=== PATIENT | female | born 1940 | race Caucasian/White ===

== ENCOUNTER 2017-04-19 21:58 | Emergency (ER) | payer MEDICARE, BC ==
[2017-04-19] MEDS ORDERED: MORPHINE SULFATE 2 MG/ML DISP.SYRIN IV ONE (23:21)
--- NOTE | 2017-04-19 23:23 | ERNOTE ---
Lower Extremity HPI - General Time Seen by Provider: 04/19/17 22:18 Source: patient - Immun/Allergies/Home Medications Immunizations: IMMUNIZATION HX Immunizations Up to Date Yes Immunizations Comment shingles. History of Influenza Vaccine Yes Hx Pneumococcal Vaccination Yes Allergies/Adverse Reactions: Allergies Allergy/AdvReac Type Severity Reaction Status Date / Time codeine Allergy Verified 04/19/17 22:14 Sulfa (Sulfonamide Allergy Verified 04/19/17 22:14 Antibiotics) Home Medications: HOME MEDICATIONS Aspirin 81 mg PO DAILY 12/05/15 [Last Taken Unknown] Atorvastatin Calcium 20 mg PO DAILY 12/05/15 [Last Taken Unknown] Cholecalciferol (Vitamin D3) [Vitamin D3] 1,000 unit PO DAILY 12/05/15 [Last Taken Unknown] Esomeprazole Magnesium [Nexium] 40 mg PO DAILY 12/05/15 [Last Taken Unknown] Hydrochlorothiazide [Hydrodiuril] 25 mg PO DAILY 12/05/15 [Last Taken Unknown] Meloxicam [Mobic] 15 mg PO DAILY 12/05/15 [Last Taken Unknown] metFORMIN HCL [Glucophage Xr] 500 mg PO BID 12/05/15 [Last Taken Unknown] rOPINIRole HCL [Requip] 0.5 mg PO DAILY 12/05/15 [Last Taken Unknown] Ibuprofen [Motrin] 600 mg PO TID PRN #30 tab 04/20/17 [Last Taken Unknown] - History of Present Illness Narrative: pt here for feeling a lissette on her right calf for 24 hours. She also states that her left days ago she had a sensation of shortness of breath and right upper chest pain. She is here predominantly because her leg is hurting in her calf is hurting she feels a knot and she is worried that it is a blood clot. - Patient's Past Medical History Patient History - Medical: Diabetes Type 2, Depression, Other Patient History - Cardiac/Respiratory: Hypertension, Hyperlipidemia Patient History - Cancer: No Hx of Cancer Patient History - Surgical Procedures: Cataracts, Hysterectomy, Total Hip Replacement, Total Knee Replacement, Other Patient History - Other: None LMP (females 10-50): Menopausal - Social History Living Situations: home Abuse History: No History of abuse Psych History: No pertinent hx Alcohol Use: occasionally Drug Use: none - Immunizations Immunizations Up to Date: Yes Hx Pneumococcal Vaccination: Yes History of Influenza Vaccine: Yes Physical Exam - Physical Exam General Appearance: Present: wd/wn, alert, no apparent distress Head Exam: Present: normal inspection Ears, Nose, Throat: Present: normal ENT inspection Respiratory: Present: no respiratory distress, normal breath sounds, no accessory muscle use, chest nontender, lungs clear Cardiovascular/Chest: Present: regular rate, rhythm, no murmur, normal peripheral pulses Extremity Exam: Present: other - there is an area of tenderness in the right calf region it feels as if a tight cord exists in the right calf. There is no redness or ecchymosis noted however the patient is extremely sensitive and tender upon palpation of this cord in her right calf. Neurological Exam: Present: alert, oriented, normal mood/affect, no motor/ sensory deficits ED Progress - Results and Orders Patient's Lab Results:: I have reviewed the patient's lab results. - Vital Signs Vital Signs: Vital Signs 04/19/17 04/19/17 04/19/17 22:09 22:51 23:20 Temperature 36.2 C L Pulse Rate 91 82 89 Respiratory 16 16 17 Rate Blood Pressure 154/83 149/73 140/72 O2 Sat by Pulse 96 97 98 Oximetry - CT/Ultrasound CT/Ultrasound Narrative: CT scan and ultrasound were read by a radiologist as negative for PE and DVT respectively. - Progress/Reassessment Chief Complaint: Lower Extremity Pain/ Injury Plan - Plan Plan: Patient has right-sided calf pain, all tests indicating this to be a DVT has been negative. At this time the patient will be sent home with leg pain. Departure Clinical Impression: Right calf pain - Departure Disposition: Home self-care Condition: Good Instructions: Muscle Cramps and Spasms, [id number] Referrals: Hannah Desir APN [Primary Care Provider] - Prescriptions: Ibuprofen [Motrin] 600 mg PO TID PRN #30 tab PRN Reason: Pain
[2017-04-19 23:26] LABS: Hematocrit 41.2 % (37.0-47.0); Hemoglobin 13.5 gm/dL (12.5-16.0); Mean Cell Volume 83.9 fl (78-100); Mean Corpuscular Hemoglobin 27.5 pg (27-31); Mean Corpuscular Hgb Conc 32.8 g/dl (32-36); Mean Platelet Volume 11.8 fl (6.0-9.5); Neutrophil # 5.8 K/mm3 (1.3-6.0); Neutrophil % 64.3 % (42-75.0); Platelet Count 255 K/mm3 (150-450); Red Blood Count 4.91 M/mm3 (4.2-5.4)
[2017-04-19] MEDS ORDERED: MORPHINE SULFATE 2 MG/ML DISP.SYRIN ONE (23:30)
[2017-04-19 23:31] LABS: Anion Gap 12.8 mmol/L (6.8-13.8); BUN/Creatinine Ratio 18.9 (9.0-21.6); Calcium * 9.5 mg/dL (7.9-10.9); Carbon Dioxide 31.3 mmol/L (24-32.6); Estimated Creat Clear 39.7; Potassium 4.1 mmol/L (3.4-4.6)
[2017-04-20 01:13] VITALS: BP 133/77
== END 2017-04-20 01:07 | disposition home or self-care (01) ==
LOC: ER 21:58
DX: M79.661 Pain in right lower leg (principal)

== ENCOUNTER 2017-05-29 15:21 | Emergency (ER) | payer MEDICARE, BC ==
[2017-05-29 15:34] VITALS: BP 123/53
[2017-05-29] MEDS ORDERED: ONDANSETRON HCL/PF 2 MG/ML VIAL ONE (15:42)
[2017-05-29] MEDS ORDERED: DIPHTH,PERTUSS(ACELL),TET VAC 0.5 ML VIAL IM ONE (15:43)
[2017-05-29] MEDS: DIPHTH,PERTUSS(ACELL),TET VAC 0.5 ML VIAL IM ONE (15:48)
[2017-05-29] MEDS: ONDANSETRON HCL/PF 2 MG/ML VIAL IV ONE (15:49)
[2017-05-29 15:58] LABS: Hematocrit 38.4 % (37.0-47.0); Hemoglobin 12.7 gm/dL (12.5-16.0); Mean Cell Volume 83.1 fl (78-100); Mean Corpuscular Hemoglobin 27.5 pg (27-31); Mean Corpuscular Hgb Conc 33.1 g/dl (32-36); Mean Platelet Volume 11.4 fl (6.0-9.5); Neutrophil # 5.5 K/mm3 (1.3-6.0); Neutrophil % 67.5 % (42-75.0); Platelet Count 242 K/mm3 (150-450); Red Blood Count 4.62 M/mm3 (4.2-5.4); White Blood Count 8.1 K/mm3 (4.0-10.5)
--- NOTE | 2017-05-29 16:08 | ERNOTE ---
Trauma/Assault HPI - Narrative Date of Service: 05/29/17 - General Stated Complaint: FALL Time Seen by Provider: 05/29/17 15:25 Source: patient, RN notes reviewed Exam Limitations: clinical condition - Immun/Allergies/Home Medications Immunizations: IMMUNIZATION HX Immunizations Up to Date Yes History of Influenza Vaccine Yes Hx Pneumococcal Vaccination Yes Allergies/Adverse Reactions: Allergies codeine Allergy (Verified 05/29/17 15:34) Sulfa (Sulfonamide Antibiotics) Allergy (Verified 05/29/17 15:34) Home Medications: HOME MEDICATIONS Aspirin 81 mg PO DAILY 12/05/15 [Last Taken Unknown] Atorvastatin Calcium 20 mg PO DAILY 12/05/15 [Last Taken Unknown] Cholecalciferol (Vitamin D3) [Vitamin D3] 1,000 unit PO DAILY 12/05/15 [Last Taken Unknown] Esomeprazole Magnesium [Nexium] 40 mg PO DAILY 12/05/15 [Last Taken Unknown] Hydrochlorothiazide [Hydrodiuril] 25 mg PO DAILY 12/05/15 [Last Taken Unknown] Meloxicam [Mobic] 15 mg PO DAILY 12/05/15 [Last Taken Unknown] metFORMIN HCL [Glucophage Xr] 500 mg PO BID 12/05/15 [Last Taken Unknown] rOPINIRole HCL [Requip] 0.5 mg PO DAILY 12/05/15 [Last Taken Unknown] Ibuprofen [Motrin] 600 mg PO TID PRN #30 tab 04/20/17 [Last Taken Unknown] Melatonin 1 mg PO HS 05/29/17 [Last Taken Unknown] - History of Present Illness Date (Duration): 05/29/17 Narrative: 76 y/o female brought to the ED by ambulance for injuries due to a fall. She was leaving the [employer] and reports tripping and falling in the parking lot. She is unsure if she lost consciousness. She struck her left cheek on the ground. She also reports pain in her left knee. She reports that she has fallen several times recently, causing her to have to relocate here to be closer to her children. She was feeling fine prior to the fall. She currently complains of nausea, but she believes this is because she is anxious. Location Occurred: Reports: other Pain Location: Reports: face, neck - left lateral, lower extremity - Left knee Method of Injury: Reports: fall Loss of Consciousness: Reports: remembers the event, remembers coming to hospital, unsure Associated Symptoms - Trauma: Reports: trouble walking, neck pain, nausea. Denies: headache, confusion, dizziness, lightheadedness, seizures, slurred speech, vision changes, chest pain, shortness of breath, abdominal pain, vomiting Review of Systems - Review of Systems Constitutional: Absent: recent illness, fever EYE: Absent: eye pain, vision changes ENT: Absent: ear discharge, nasal drainage Respiratory: Absent: shortness of breath, wheezing Cardiology: Absent: chest pain, palpitations, syncope Gastrointestinal/Abdominal: Present: nausea. Absent: vomiting, abdominal pain Genitourinary: Present: no symptoms reported Musculoskeletal: Present: muscle pain, neck pain, joint pain. Absent: back pain , joint swelling Skin: Absent: rash, lesions, change in color Neurological: Absent: dizziness/light-headedness, weakness, numbness, tingling Endocrine: Present: no symptoms reported Hematologic/Lymphatic: Absent: easy bruising, easy bleeding Psych: Present: no symptoms reported - Patient's Past Medical History Patient History - Medical: Cataracts, Diabetes Type 2, Depression - Bipolar, Fibromyalgia, UTI'S, Other Patient History - Cardiac/Respiratory: CHF, Hypertension, Hyperlipidemia, TIA, Sleep Apnea Patient History - Cancer: No Hx of Cancer Patient History - Surgical Procedures: Appendectomy, Cataracts, Colonoscopy, Hysterectomy, Total Hip Replacement, Total Knee Replacement Patient History - Other: None LMP (females 10-50): Menopausal - Social History Living Situations: other Abuse History: No History of abuse Psych History: No pertinent hx Smoking Status: Former smoker Have you smoked in the past 12 months: No Do you dip or chew tobacco: No Alcohol Use: occasionally Drug Use: none - Immunizations Immunizations Up to Date: Yes Hx Pneumococcal Vaccination: Yes History of Influenza Vaccine: Yes Physical Exam - Physical Exam General Appearance: Present: wd/wn, mild distress, anxious Head Exam: Present: tenderness - Right maxillary region. Absent: Garzon's Sign , contusions, ecchymosis, lacerations, raccoon eyes, swelling Eye Exam: Normal inspection: bilateral, PERRL: bilateral, EOMI: bilateral Ears, Nose, Throat: Present: normal ENT inspection Neck: Present: supple, full range of motion, tender lateral - left. Absent: tender posterior midline Respiratory: Present: no respiratory distress, normal breath sounds, no accessory muscle use, lungs clear Cardiovascular/Chest: Present: regular rate, rhythm, no murmur, normal peripheral pulses Gastrointestinal/Abdominal: Present: nontender, nondistended, soft Back Exam: Present: normal inspection, no CVA tenderness, no vertebral tenderness Extremity Exam: Present: no edema, pelvis stable, other - contusion/abrasion left anterior knee Neurological Exam: Present: alert, oriented, normal mood/affect, no motor/ sensory deficits Skin Exam: Present: normal color, warm/dry ED Progress - Results and Orders Patient's Lab Results:: I have reviewed the patient's lab results. - Vital Signs Patient's Vital Signs:: I have reviewed the patient's vital signs. Vital Signs: Vital Signs 05/29/17 15:27 Temperature 36.2 C L Pulse Rate 63 Respiratory 20 Rate Blood Pressure 123/53 O2 Sat by Pulse 96 Oximetry - X-Ray X-Ray #1 X-Ray: knee Interpretation: Reviewed by me X-ray Comments: Left - no acute osseous findings - CT/Ultrasound CT/Ultrasound Narrative: Non-contrast head CT shows no acute intracranial findings - Progress/Reassessment Chief Complaint: Fall Progress:: Improved Departure Clinical Impression: Fall Qualifiers: Encounter type: initial encounter Qualified Code(s): W19.XXXA - Unspecified fall, initial encounter Contusion of knee, left Qualifiers: Encounter type: initial encounter Qualified Code(s): S80.02XA - Contusion of left knee, initial encounter - Departure Disposition: Home self-care Condition: Good Instructions: Contusion, [id number], Fall Prevention in the Home Additional Instructions: Tylenol for pain Ice to sore areas as needed Continue your routine medications Follow up as needed
[2017-05-29 16:20] LABS: ALT 17 U/L (19-67); AST 26 U/L (0-48); Albumin * 3.5 gm/dl (3.4-5.0); Alkaline Phosphatase * 92 U/L (50-170); Anion Gap 14.7 mmol/L (6.8-13.8); BUN/Creatinine Ratio 22.2 (9.0-21.6); Bilirubin, Total 1.4 mg/dL (0.0-1.1); Blood Urea Nitrogen 22 mg/dL (3-23); Ca. Corrected For Albumin 9.6 mg/dL (8.4-10.2); Calcium * 9.5 mg/dL (7.9-10.9); Chloride 101 mmol/L (97-106); Glucose * 138 mg/dL (70-110); Potassium 3.7 mmol/L (3.4-4.6); Sodium 140 mmol/L (132-142); Total Protein 7.4 gm/dL (6.2-8.2)
[2017-05-29 16:39] LABS: Urine Bilirubin Negative (NEGATIVE); Urine Blood Negative /ul (NEGATIVE); Urine Ketone 5 mg/dL (NEGATIVE); Urine Nitrite Negative (NEGATIVE); Urine Protein Negative (NEGATIVE); Urine Specific Gravity >=1.030 SP.GR. (1.005-1.010); Urine Urobilinogen Normal (NORMAL); Urine pH 5.5 pH (5.0-7.0)
[2017-05-29 16:51] LABS: Cocaine Ur Negative (NEGATIVE); Urine Barbiturate Negative (NEGATIVE); Urine Benzodiazepines Negative (NEGATIVE); Urine PCP Negative (NEGATIVE); Urine THC Negative (NEGATIVE)
[2017-05-29 16:52] LABS: Urine Appearance Slightly Cloudy; Urine Bacteria 2+; Urine Color Dark Yellow; Urine RBC None Seen /hpf (0-5); Urine WBC 0-5 /hpf (0-5)
[2017-05-29] MEDS ORDERED: KETOROLAC TROMETHAMINE 30 MG/ML VIAL ONE (16:55)
[2017-05-29] MEDS: KETOROLAC TROMETHAMINE 30 MG/ML VIAL IV ONE (16:56)
[2017-05-29 17:03] LABS: Urine Opiates Negative (NEGATIVE)
== END 2017-05-29 17:00 | disposition home or self-care (01) ==
LOC: ER 15:21
DX: S80.02XA Contusion of left knee, initial encounter (principal); S80.212A Abrasion, left knee, initial encounter; E11.9 Type 2 diabetes mellitus without complications; Z87.440 Personal history of urinary (tract) infections; I10 Essential (primary) hypertension; E78.5 Hyperlipidemia, unspecified; I50.9 Heart failure, unspecified; Z87.891 Personal history of nicotine dependence; W01.0XXA Fall on same level from slipping, tripping and stumbling without subsequent striking against object, initial encounter; Y93.01 Activity, walking, marching and hiking; Y92.481 Parking lot as the place of occurrence of the external cause; Z23 Encounter for immunization; Z79.899 Other long term (current) drug therapy
CPT/HCPCS: 36415; 70450; 73562; 80053; 80307; 81001; 85025; 90471; 90715; 96374; 96375; 99284; G0481; J2405

== ENCOUNTER 2017-09-05 04:27 | Emergency (ER) | payer MEDICARE, BC ==
[2017-09-05] MEDS ORDERED: ASPIRIN 81 MG TAB.CHEW PO ONE (04:36)
[2017-09-05] MEDS: NITROGLYCERIN 0.4 MG/TAB BTL SL PRN ×3 (04:36→04:51)
[2017-09-05] MEDS ORDERED: ASPIRIN 81 MG TAB.CHEW ONE (04:39)
[2017-09-05 04:54] LABS: Hematocrit 38.1 % (37.0-47.0); Hemoglobin 12.4 gm/dL (12.5-16.0); Mean Cell Volume 84.9 fl (78-100); Mean Corpuscular Hemoglobin 27.6 pg (27-31); Mean Corpuscular Hgb Conc 32.5 g/dl (32-36); Mean Platelet Volume 11.4 fl (6.0-9.5); Neutrophil # 5.7 K/mm3 (1.3-6.0); Neutrophil % 67.3 % (42-75.0); Platelet Count 174 K/mm3 (150-450); Red Blood Count 4.49 M/mm3 (4.2-5.4); Red Cell Distribution Width 14.2 % (11.5-14.0); White Blood Count 8.5 K/mm3 (4.0-10.5)
[2017-09-05 05:07] LABS: Prothrombin Time (Patient) 10.1 Seconds (9.0-11.0)
[2017-09-05 05:09] LABS: INR 1.01 INR (0.90-1.10); Partial Thrombolplastin Time 25.4 Seconds (24-32)
[2017-09-05] MEDS ORDERED: MORPHINE SULFATE 4 MG/ML SYRG ONE ×2 (05:13→05:43)
[2017-09-05] MEDS ORDERED: MORPHINE SULFATE 4 MG/ML SYRG IV ONE ×2 (05:14→05:37)
[2017-09-05 05:16] LABS: ALT 16 U/L (19-67); AST 26 U/L (0-48); Albumin * 3.4 gm/dl (3.4-5.0); Alkaline Phosphatase * 98 U/L (50-170); BUN/Creatinine Ratio 22.5 (9.0-21.6); Bilirubin, Total 1.3 mg/dL (0.0-1.1); Blood Urea Nitrogen 20 mg/dL (3-23); Ca. Corrected For Albumin 9.6 mg/dL (8.4-10.2); Calcium * 9.4 mg/dL (7.9-10.9); Carbon Dioxide 29.7 mmol/L (24-32.6); Chloride 102 mmol/L (97-106); Glucose * 149 mg/dL (70-110); Potassium 3.7 mmol/L (3.4-4.6); Sodium 141 mmol/L (132-142); Total Protein 7.2 gm/dL (6.2-8.2); Troponin I Less than 0.017 ng/ml (0.00-0.10)
--- NOTE | 2017-09-05 07:08 | ERNOTE ---
<Aleksandr Devi - Last Filed: 09/05/17 07:01> Chest Pain/Cardiac HPI Date of Service: 09/05/17 Chief Complaint: Chest Pain Time Seen by Provider: 09/05/17 04:36 Source: patient Exam Limitations: no limitations Immunizations: IMMUNIZATION HX Immunizations Up to Date Yes History of Influenza Vaccine Yes Hx Pneumococcal Vaccination Yes Allergies/Adverse Reactions: Allergies codeine Allergy (Verified 05/29/17 15:34) Sulfa (Sulfonamide Antibiotics) Allergy (Verified 05/29/17 15:34) Home Medications: HOME MEDICATIONS Aspirin 81 mg PO DAILY 12/05/15 [Last Taken Unknown] Atorvastatin Calcium 20 mg PO DAILY 12/05/15 [Last Taken Unknown] Cholecalciferol (Vitamin D3) [Vitamin D3] 1,000 unit PO DAILY 12/05/15 [Last Taken Unknown] Esomeprazole Magnesium [Nexium] 40 mg PO DAILY 12/05/15 [Last Taken Unknown] Hydrochlorothiazide [Hydrodiuril] 25 mg PO DAILY 12/05/15 [Last Taken Unknown] Meloxicam [Mobic] 15 mg PO DAILY 12/05/15 [Last Taken Unknown] metFORMIN HCL [Glucophage Xr] 500 mg PO BID 12/05/15 [Last Taken Unknown] rOPINIRole HCL [Requip] 0.5 mg PO DAILY 12/05/15 [Last Taken Unknown] Ibuprofen [Motrin] 600 mg PO TID PRN #30 tab 04/20/17 [Last Taken Unknown] Melatonin 1 mg PO HS 05/29/17 [Last Taken Unknown] Narrative: patient had onset of left arm neck and slight chest pain, onset at 400 am this am Timing: constant Severity/Quality: pressure, stabbing Location: central, left chest Chest Pain Radiation: jaw, arms Activities at Onset: rest Modifying Factors - Improves: Present: nothing Nitro Today/Relief: no nitro taken today Aspirin Treatment Today: no aspirin today Associated Symptoms: Present: denies symptoms Prior Chest Pain/Cardiac Workup: Reports: no prior cardiac workup Prior Treatment: Reports: other - no prior treatment Review of Systems - Narrative Narrative: onset of neck, arm pain this am with slight arm pressure - Review of Systems Constitutional: Present: See HPI EYE: Present: no symptoms reported Respiratory: Present: no symptoms reported Cardiology: Present: no symptoms reported Gastrointestinal/Abdominal: Present: no symptoms reported Genitourinary: Present: no symptoms reported Musculoskeletal: Present: neck pain Skin: Present: no symptoms reported Neurological: Present: no symptoms reported Endocrine: Present: no symptoms reported Hematologic/Lymphatic: Present: no symptoms reported - Narrative Narrative: paet hx unremarkable - Patient's Past Medical History Patient History - Medical: Cataracts, Diabetes Type 2, Depression, Fibromyalgia , UTI'S, Other Patient History - Cardiac/Respiratory: CHF, Hypertension, Hyperlipidemia, TIA, Sleep Apnea Patient History - Cancer: No Hx of Cancer Patient History - Surgical Procedures: Appendectomy, Cataracts, Colonoscopy, Hysterectomy, Total Hip Replacement, Total Knee Replacement Patient History - Other: None LMP (females 10-50): Menopausal - Family History Family History:: no untoward family reactions to anesthesia, no familial bleeding tendencies, no family history of clotting disorders, no family history of premature - Social History Living Situations: home Abuse History: No History of abuse Psych History: No pertinent hx Smoking Status: Former smoker Have you smoked in the past 12 months: No Do you dip or chew tobacco: No Patient requests Smoking Cessation Consult: No Initiate information on Smoking Cessation: No Alcohol Use: none Drug Use: none - Immunizations Immunizations Up to Date: Yes Hx Pneumococcal Vaccination: Yes History of Influenza Vaccine: Yes Physical Exam - Physical Exam General Appearance: Present: alert, moderate distress Head Exam: Present: normal inspection, no evidence of injury Eye Exam: Normal inspection: bilateral, PERRL: bilateral, EOMI: bilateral Ears, Nose, Throat: Present: normal ENT inspection Neck: Present: normal inspection, nontender Respiratory: Present: no respiratory distress, normal breath sounds, no accessory muscle use, chest tenderness Cardiovascular/Chest: Present: regular rate, rhythm, no murmur, normal peripheral pulses Peripheral Pulses: N=norm/S=strong/W=weak/B=bound/A=absent: Carotid (R): Normal , Carotid (L): Normal, Radial (R): Normal, Radial (L): Normal, Femoral (R): Normal, Femoral (L): Normal, Dorsalis-pedis (R): Normal, Dorsalis-pedis (L): Normal Gastrointestinal/Abdominal: Present: normal bowel sounds, nondistended, soft, no organomegaly Back Exam: Present: normal inspection, normal range of motion, no CVA tenderness , no vertebral tenderness Extremity Exam: Present: normal inspection, normal range of motion, no edema DTR: N=norm/NB=norm/brisk/A=abs/DD=dull/dimin/HC=hyperactive: Bicep (R): Normal , Bicep (L): Normal, Tricep (R): Normal, Tricep (L): Normal, Knee (R): Normal, Knee (L): Normal, Ankle (R): Normal, Ankle (L): Normal Skin Exam: Present: normal color, warm/dry Lymphatic Exam: Present: no adenopathy ED Progress - Vital Signs Patient's Vital Signs:: I have reviewed the patient's vital signs. Vital Signs: Vital Signs 09/05/17 09/05/17 09/05/17 04:34 04:45 04:53 Temperature 36.8 C Pulse Rate 63 58 L 75 Respiratory 15 18 Rate Blood Pressure 176/92 133/67 O2 Sat by Pulse 97 93 Oximetry 09/05/17 09/05/17 09/05/17 05:18 05:34 05:54 Temperature Pulse Rate 61 59 L 58 L Respiratory 18 16 16 Rate Blood Pressure 130/65 118/65 118/56 O2 Sat by Pulse 94 94 93 Oximetry - EKG EKG: NSR, ST depression EKG read: Interp. by me - X-Ray X-Ray #1 X-Ray: chest Interpretation: Interp. by me - no acute process - Progress/Reassessment Chief Complaint: Chest Pain Departure Clinical Impression: NSTEMI (non-ST elevated myocardial infarction) - Departure Disposition: [facility] Condition: Critical <Lino Swanson - Last Filed: 09/05/17 09:52> Chest Pain/Cardiac HPI Immunizations: IMMUNIZATION HX Immunizations Up to Date Yes History of Influenza Vaccine Yes Hx Pneumococcal Vaccination Yes Review of Systems - Review of Systems Respiratory: Present: See HPI Cardiology: Present: See HPI ED Progress - Results and Orders Patient's Lab Results:: I have reviewed the patient's lab results. - Vital Signs Vital Signs: Vital Signs 09/05/17 09/05/17 09/05/17 04:34 04:45 04:53 Temperature 36.8 C Pulse Rate 63 58 L 75 Respiratory 15 18 Rate Blood Pressure 176/92 133/67 O2 Sat by Pulse 97 93 Oximetry 09/05/17 09/05/17 09/05/17 05:18 05:34 05:54 Temperature Pulse Rate 61 59 L 58 L Respiratory 18 16 16 Rate Blood Pressure 130/65 118/65 118/56 O2 Sat by Pulse 94 94 93 Oximetry 09/05/17 09/05/17 09/05/17 06:34 07:04 07:34 Temperature Pulse Rate 59 L 60 58 L Respiratory 10 L 12 15 Rate Blood Pressure 114/60 106/58 115/61 O2 Sat by Pulse 91 93 93 Oximetry Plan - Plan Plan: Given that the patient has inverted T waves in anterolateral leads and what appears to be some subtle depression in the same leads with mild elevation V1 and aVR we have to be suspicious for some possible involvement of the left main coronary artery. Then 1 inch Nitropaste, Lovenox subcutaneous and she'll be transferred to [facility] where they have interventional cardiology. Critical Care Note - Critical Care Note Total Time (mins): 40 Comments: Patient be transferred to [facility]. I've held off on starting any IV nitroglycerin at this juncture as patient appears to be reasonably controlled on Nitropaste. Patient does not appear to be a candidate for TPA and might be best suited for PTCA which will be considered in [place].
[2017-09-05] MEDS ORDERED: ACETAMINOPHEN 500 MG TABLET PO ONE (07:12)
[2017-09-05] MEDS ORDERED: NITROGLYCERIN 1 INCH PACKET TD ONE ×2 (09:23→09:27)
[2017-09-05] MEDS ORDERED: ENOXAPARIN SODIUM 100 MG/ML SYRG SC ONE ×2 (09:44→09:49)
[2017-09-05 10:07] VITALS: BP 122/51
== END 2017-09-05 10:18 | disposition short-term general hospital (02) ==
LOC: ER 04:27
DX: I21.4 Non-ST elevation (NSTEMI) myocardial infarction (principal)